=== PATIENT | female | born 1950 ===

== ENCOUNTER 2022-12-16 05:30 | Day surgery (SDC) | payer OTHER ==
[~2022-12-16] VITALS: Ht 152.4 cm; Wt 57.2 kg
[~2022-12-16 05:30] MED LIST: CANDE PO; GLUMETZA1000 MG PO; LEVOXYL100 MCG PO; METOPR PO
[2022-12-16] MEDS ORDERED: TRAM1TAB98 PO (08:12)
== END 2022-12-16 11:40 | disposition home or self-care (01) ==
LOC: CIR.AMB 05:30
PROVIDERS: ATTEND Surgery
DX: C19 Malignant neoplasm of rectosigmoid junction (principal); R19.5 Other fecal abnormalities; Z20.822 Contact with and (suspected) exposure to COVID-19; I10 Essential (primary) hypertension

== ENCOUNTER 2024-01-22 06:39 | Day surgery (SDC) | payer OTHER ==
[2024-01-16 12:29] LABS: PH,URINE 5.5 (5.0-8.0); URINE APPEARANCE Clear; URINE BILIRRUBIN Negative (NEGATIVE); URINE BLOOD Negative; URINE COLOR Yellow; URINE GLUCOSE Negative (NEGATIVE); URINE KETONE Negative (NEGATIVE); URINE LEUKOCYTE Trace; URINE NITRATE Negative; URINE PROTEIN Negative (NEGATIVE); URINE UROBILINOGEN 0.2 E.U./dl
[2024-01-16 12:33] LABS: URINE BACTERIA 119.7 uL (0.0-1933); URINE EPITHELIAL CELLS 8.8 uL (0.0-38.8); URINE RBC 2.1 uL (0.0-20.8); URINE WBC 12.8 uL (0.0-23.2)
[2024-01-16 12:44] LABS: INR 0.97; PARTIAL THROMBOPLASTIN TIME 22.9 SECONDS (22.0-34.0); PROTHROMBIN TIME 10.6 SECONDS (9.0-11.5)
[2024-01-16 12:50] LABS: HEMATOCRIT 32.7 % (36.0-45.00); HEMOGLOBIN 11.2 g/dL (12.0-15.00); MEAN CELL VOLUME 94.9 fL (80.00-100.00); MEAN CORPUSCULAR HEMOGLOBIN 32.5 pg (27.00-32.0); MEAN CORPUSCULAR HGB CONC 34.2 g/dl (32.0-36.0); PLATELET COUNT 144 K/uL (150-450); RED BLOOD COUNT 3.45 M/uL (4.00-6.00); RED CELL DISTRIBUTION WIDTH 14.4 % (11.5-14.5)
[2024-01-16 13:09] LABS: ALBUMIN 3.8 gm/dL (3.4-5.0); BILIRUBIN TOTAL 0.58 mg/dL (0.3-1.2); CALCIUM 10.2 mg/dL (8.5-10.1); CREATININE SERUM 1.07 mg/dL (0.55-1.02); GFR 50.13; GLOBULINA 3.4 G/DL (2.4-3.5); POTASSIUM 4.29 mEq/L (3.5-5.1); TOTAL PROTEIN 7.2 gm/dL (6.4-8.2)
[2024-01-16 13:13] LABS: URINE CAST 0.15 uL (0.0-1.40)
[~2024-01-22 06:39] MED LIST changes: +TRAM1TAB98 PO
[2024-01-22] MEDS ORDERED: BUPIVACAINE HCL/MPF 0.5% 30ML VIAL ONE (09:57)
[2024-01-22] MEDS ORDERED: CEFAZOLIN SODIUM 1,000 MG VIAL ONE (09:58)
[2024-01-22] MEDS ORDERED: LIDOCAINE HCL 1%/EPINEPHRINE 20ML VIAL IJ ONE (09:58)
[2024-01-22] MEDS ORDERED: TRAM1TAB98 PO (13:04)
== END 2024-01-22 15:00 | disposition home or self-care (01) ==
LOC: CIR.AMB 06:39
PROVIDERS: ATTEND Surgery
DX: C20 Malignant neoplasm of rectum (principal); R19.5 Other fecal abnormalities; D37.5 Neoplasm of uncertain behavior of rectum; I10 Essential (primary) hypertension; E10.9 Type 1 diabetes mellitus without complications; E03.9 Hypothyroidism, unspecified; R00.1 Bradycardia, unspecified; M19.90 Unspecified osteoarthritis, unspecified site